=== PATIENT | male | born 1980 | race Caucasian/White ===

== ENCOUNTER → 2020-03-11 15:48 | Outpatient (CLI) | payer OTHER, SELFPAY ==
--- NOTE | ~2020-03-11 | XR_ITS ---
EXAMINATION: XR hand RT min 3V DATE: 03/11/2020 16:19 INDICATION: Right hand pain and swelling post fourth digit hyperextension injury 2-3 weeks prior. TECHNIQUE: Posteroanterior, oblique and lateral views of the right hand were obtained. COMPARISON: None. FINDINGS: Dorsal subluxation near dislocation of the right fourth dorsal interphalangeal joint. Small fracture along the palmar rim of the middle phalanx which is displaced distally with approximately 1.5 mm step -off at the articular surface. Soft tissue swelling about the fourth proximal interphalangeal joint. Alignment is otherwise normal in the right hand. No other fractures identified. 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 IMPRESSION: 1. Volar plate avulsion fracture at the fourth proximal phalanx with dorsal subluxation verging on di slocation at the proximal interphalangeal joint. Reviewed, dictated and finalized at location A. 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 Volar plate avulsion fracture at the fourth proximal phalanx with dorsal sub luxation verging on dislocation at the proximal interphalangeal joint.
== END ==
PROVIDERS: Visit Provider Family Medicine
DX: S62.614A Displaced fracture of proximal phalanx of right ring finger, initial encounter for closed fracture (principal)
CPT/HCPCS: 73130

== ENCOUNTER → 2020-03-16 17:05 | Outpatient (CLI) | payer OTHER, SELFPAY ==
--- NOTE | ~2020-03-16 | XR_ITS ---
EXAMINATION: XR finger 4th RT min 2V INDICATION: Right fourth middle phalanx fracture TECHNIQUE: Four views of the right fourth finger are obtained. COMPARISON: 03/11/2020 FINDINGS: Again seen is a volar plate avulsion fracture of the fourth middle phalanx. The middle phal anx demonstrates progressively worsened dorsal subluxation relative to the proximal interphalangeal j oint. Soft tissue swelling of the fourth finger persists but has improved. There is a dorsal splint i n place. The remaining osseous structures are unremarkable. IMPRESSION: 1. Volar plate avulsion fracture at the fourth middle phalanx with interval worsening of dorsal sublu xation of the middle phalanx relative to the proximal phalanx at the proximal interphalangeal joint. 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 Volar plate avulsion fracture at the fourth middle phalanx with interval wor sening of dorsal subluxation of the middle phalanx relative to the proximal pha lanx at the proximal interphalangeal joint.
== END ==
PROVIDERS: Visit Provider Plastic Surgery
DX: S62.624A Displaced fracture of middle phalanx of right ring finger, initial encounter for closed fracture (principal); X58.XXXA Exposure to other specified factors, initial encounter
CPT/HCPCS: 73140

== ENCOUNTER 2020-03-28 01:14 | Outpatient (CLI) | payer OTHER, SELFPAY ==
[2020-03-28 18:59] LABS: SARS-CoV-2 RNA PCR Negative
== END 2020-03-28 01:15 | disposition home or self-care (01) ==
LOC: ANHCOVIDDT 01:15
PROVIDERS: PCP Family Medicine; Visit Provider Plastic Surgery
DX: Z01.818 Encounter for other preprocedural examination (principal); Z20.828 Contact with and (suspected) exposure to other viral communicable diseases
CPT/HCPCS: 87635; C9803; U0003

== ENCOUNTER 2020-03-31 01:53 | Day surgery (SDC) | payer OTHER, SELFPAY ==
[2020-03-30 10:13] VITALS: BMI 29.9
--- NOTE | 2020-03-30 12:14 | P.PNAN_ITS ---
Anes - Initial Pre Proc Eval Procedure: Operation Date: 03/31/20 08:30 Proposed Procedures p Volar Plate Advancement Arthroplasty Right Ring Proximal Interphalangeal Joint - Miguelangel Echols MD Date/Time: 03/30/20 12:14 Surgeon: Miguelangel Echols MD Pre Op Diagnosis: displaced fx phalanx right ring finger Patient Data Age: 39 Gender: M Height: 1.91 m Weight: 108.86 kg Allergies Allergy/AdvReac Type Severity Reaction Status Date / Time No Known Allergies Allergy Unverified 04/04/19 10:35 Home Medications Medication Instructions Recorded Confirmed Type adalimumab [Humira(CF) Pen] 40 mg SUBCUT WEEKLY 03/30/20 03/30/20 History Patient hx anesthesia problems: none Family hx anesthesia problems: none PMFSH Past Medical History Medical History (Updated 03/30/20 @ 12:23 by Dada Nix MD) Obesity Psoriasis Psoriatic arthritis Family History Family History Grandparent Family history of cardiovascular disease Cerebrovascular accident Other Family history of throat cancer Social History Social History Smoking packs per day: 1 Smoking cigarettes per day: 20.0 Years smoked: 10 Smoking pack-years: 10.00 Smoking status: Former smoker Tobacco type: cigarettes Second hand tobacco smoke exposure: No Smoking end date: 04/10/17 Alcohol intake: current Drinks per week: 5 Substance use: never Substance use type: does not use Living arrangements: with family Spiritual care concerns: No Anes - Eval Final PreProcedure Day of Procedure 03/30/20 12:14 Patient weight: obese Heart: regular rate and rhythm Lungs: clear to auscultation and normal air movement Airway: Mallampati scale class II Neurological: alert and oriented Last oral intake: >/= 8 hours ASA classification: II Emergent: no Anesthetic plan: proceed Anesthesia type and monitoring: general LMA Informed Consent: The patient's anesthetic plan and its attendant risks and benefits were discussed with the patient/family/POA. Questions were solicited and answers provided to the satisfaction of the patient/family/POA.
[2020-03-31] VITALS (8 sets, daily range): BP systolic 136–159; BP diastolic 78–93; PULSE 62–84; RESP 12–20; TEMP 36.1–36.3; O2SAT 95–100
--- NOTE | ~2020-03-31 | XR_ITS ---
EXAMINATION: XR surgery orthopedic EXAM DATE: 03/31/2020 10:25 INDICATION: RT Ring Finger Arthroplasty . TECHNIQUE: Fluoroscopy used during XR surgery orthopedic performed by Dr. Miguelangel Echols MD. The DAP for this procedure was 20 cGycm2. Comparison is made to prior examination from 03/16/2020. FINDINGS: There is a metallic wire fixing the right 4th proximal interphalangeal joint in expected p osition, reduction in the previously seen posterior dislocation. Difficult to identify the middle pha langeal volar plate avulsion seen on that exam. Correlate with procedure note. IMPRESSION: Fluoroscopy used during XR surgery orthopedic. Reviewed, dictated and finalized at location B. 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
[2020-03-31] MEDS: LACTATED RINGERS 1,000 ML 30 ML IV CONT ×2 (06:26→10:36)
--- NOTE | 2020-03-31 07:13 | WPDHPUPDATE1 ---
History and Physical Update Update Date/Time: 03/31/20 07:13 History and Physical has been reviewed, including an updated exam of the patient. There are NO changes in the patient's condition. Risks, benefits, and alternatives have been discussed and questions answered. Patient agrees to proceed with procedure.
[2020-03-31] MEDS: ceFAZolin 2 GM/D5W 50 ML 2 GM/50 ML BAG IVPB (07:23)
[2020-03-31] MEDS: LIDO 1%/EPINEPHRINE 1:100,000 20 ML VIAL 8 ML INFILTRATE (07:50)
--- NOTE | 2020-03-31 10:59 | PM.OP ---
Procedure Note - Brief Procedure Note - Brief Date of procedure: 03/31/20 Pre-op diagnosis: displaced fx phalanx right ring finger Post-op diagnosis: same Procedure performed: Volar plate advancement arthroplasty right ring finger. Anesthesia: GLMA Surgeon: Miguelangel Echols MD Factory Superintendent: ANTONI Estimated blood loss (mL): 10 Drains: No Packing: No Pathology: none sent Complications: No immediate complications Condition: stable Disposition: PACU
--- NOTE | 2020-04-01 18:20 | P.OP_ITS ---
Procedure Note - Detailed Date of procedure: 03/31/20 Pre-op diagnosis: displaced fx phalanx right ring finger Post-op diagnosis: same Procedure performed: Volar plate arthroplasty of the proximal interphalangeal joint of the right ring finger Description of procedure: The right ring finger was marked in the holding flowers. The patient was taken to the operating room and placed supine on the operating table. A time-out was held and confirmed. He was given general endotracheal anesthesia. The right upper extremity was prepped and draped in usual fashion. The right ring finger was infiltrated with 1% lidocaine with epinephrine as an i ntrathecal block. Markings were made for the palmar skin flap the tourniquet was inflated to 250 mmHg. The skin flap was elevated leaving the neurovascular bundle on that side in situ. The flap was based radially. The flexor tendon sheath was exposed. The interval between the 2nd and 4th annular pulleys was incised and elevated radially as a flap to be repaired later. The flexor tendons were mobilized to either side as needed. The volar plate was incised at the insertion elevating the fracture fragments proximally with the volar plate. The attached fragments were excised off the volar plate. The fracture site was carefully examined. A trough was cleared from 1 side to the other removing small fracture fragments. An appropriate length of volar plate was determined. The position of the middle phalanx to receive the advancing volar plate was determined. Two double-armed 3-0 Ethibond sutures were inserted in Vivian fashion on either lateral aspect of the volar plate. The distal volar plate was elevated carefully away from the head of the proximal phalanx approximately a cm. A Srini needle was drilled through the base of the middle phalanx starting adjacent to the articular surface and exiting in the area of the triangular ligament. The 2 suture ends from each side were passed through the bone on the Srini needle after removing the switched on needles. With the finger flexed approximately 35? the volar plate was advanced and the suture ends tied over the dorsal cortex of the middle phalanx. In extension there was complete congruity without any subluxation. It appeared that in passive flexion the congruity was lost. A suture was placed on either side of the volar plate to reattached the collateral ligaments. With careful reduction of subluxation of the middle phalanx, the joint was stabilized with a transfixing 0.045 inch c-wire. The tendon sheath flap was repaired with 4-0 Vicryl sutures. The C-wire was cut and a Jurgan ball applied to the tip. No repair of the triangular ligament was done. The central slip remained in situ. The skin was closed with a running 5 0 nylon suture on the dorsum and palmar aspect. A soft padded dressing was applied. 0.5% Marcaine plain was infiltrated in the base of the digit. The patient had been given IV Ancef 2 g at the start of the case. He was discharged home with instructions in wound care and follow-up and a prescription for Percocet 5/325 #14. Surgeon: Miguelangle Echols MD
== END 2020-03-31 12:28 | disposition home or self-care (01) ==
PROVIDERS: PCP Family Medicine; Visit Provider Plastic Surgery
PROC: (CPT 25447; principal; 2020-03-31 07:30)
DX: S62.615A Displaced fracture of proximal phalanx of left ring finger, initial encounter for closed fracture (principal); X50.0XXA Overexertion from strenuous movement or load, initial encounter; L40.9 Psoriasis, unspecified; L40.50 Arthropathic psoriasis, unspecified; E66.9 Obesity, unspecified; Z68.30 Body mass index [BMI] 30.0-30.9, adult
CPT/HCPCS: 26735; 87635; A9270; C1713; C9803; J0131; J0690; J1100; J1170; J1885; J2250; J2405; J2704; J3010; J7120; U0003

== ENCOUNTER → 2020-05-04 16:52 | Outpatient (CLI) | payer OTHER, SELFPAY ==
--- NOTE | ~2020-05-04 | XR_ITS ---
XR finger 4th RT min 2V DATE: 05/04/2020 17:08 INDICATION: Status post polar plate arthroplasty TECHNIQUE: 5 views COMPARISON: 03/16/2020, 03/11/2020 right fourth digit right hand, respectively FINDINGS: There is very prominent soft tissue swelling of the fourth digit centered at the proximal i nterphalangeal joint. There is at least 50% dorsal subluxation at the proximal interphalangeal joint. Previously noted ante rior cortical avulsion fracture fragment is not definitely visualized on the current examination. Is osteoarthritic change at the distal interphalangeal joint. IMPRESSION: Very prominent soft tissue swelling centered at the proximal interphalangeal joint If there is concern for osteomyelitis, consider 3 phase radionuclide bone scan. 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 At least 50% dorsal subluxation at the proximal interphalangeal joint
== END ==
PROVIDERS: Visit Provider Plastic Surgery
DX: S62.624D Displaced fracture of middle phalanx of right ring finger, subsequent encounter for fracture with routine healing (principal); M79.89 Other specified soft tissue disorders
CPT/HCPCS: 73140

== ENCOUNTER → 2021-12-07 15:55 | Outpatient (CLI) | payer OTHER, SELFPAY ==
--- NOTE | ~2021-12-07 | XR_ITS ---
XR ankle LT min 3V DATE: 12/07/2021 16:04 INDICATION: Left ankle pain TECHNIQUE: 4 views COMPARISON: None FINDINGS: Prominent plantar calcaneal enthesopathy. No fracture or dislocation of the ankle or disruption of the ankle mortise. No periosteal reaction or bone destruction. IMPRESSION: Plantar calcaneal enthesopathy No significant abnormality of the ankle Reviewed, dictated and finalized at location B.
== END ==
PROVIDERS: PCP Family Medicine; Visit Provider Family Medicine
DX: M25.572 Pain in left ankle and joints of left foot (principal); M77.32 Calcaneal spur, left foot
CPT/HCPCS: 73610

== ENCOUNTER 2023-07-28 09:46 | Outpatient (CLI) | payer OTHER, SELFPAY ==
--- NOTE | 2023-07-28 09:51 | EST_ITS ---
Patient Info Name: Jarocho Michel Age: 42 years : 1980 Gender: Male Ht: 75 in Wt: 235 lbs BSA: 2.39 m2 HR: 49 bpm BP: 130 / 76 mmHg Exam Date: 07/28/2023 10:01 AM Exam Location: [facility] Patient Status: Outpatient Admit Date: 07/28/2023 Staff Ordering Physician: Manolo Fox DO Attending Provider: Manolo Fox DO Exercise Technologist: Johana Tanner [facility] Exercise Physician: Porfirio Swanson DO Exam Type: CA stress test treadmill Study Info A treadmill exercise stress test was performed. Summary 1. 1. Negative Mikey exercise stress test for ischemic ST changes by ECG criteria. 2. 2. Good functional capacity, achieving 12 METs of workload. 3. 3. Hypertensive response to exercise. 4. 4. Appropriate HR response to exercise. 5. 5. Appropriate HR recovery at 1 minute post exercise. 6. 6. No imaging with stress testing. 7. 7. Patient informed of the above results. Protocol: Mikey Stress ECG Details Stage: REST Duration (min): 1 min : 5 sec Speed (mph): 0.0 Grade (%): 0 HR (bpm): 49 SBP (mmHg): 130 DBP (mmHg): 76 METS: --- Stage: REST Duration (min): 3 min : 56 sec Speed (mph): 0.0 Grade (%): 0 HR (bpm): 62 SBP (mmHg): 130 DBP (mmHg): 76 METS: --- Stage: STAGE 1 Duration (min): 1 min : 0 sec Speed (mph): 1.7 Grade (%): 10 HR (bpm): 87 SBP (mmHg): 130 DBP (mmHg): 76 METS: --- Stage: STAGE 1 Duration (min): 2 min : 0 sec Speed (mph): 1.7 Grade (%): 10 HR (bpm): 95 SBP (mmHg): 130 DBP (mmHg): 76 METS: --- Stage: STAGE 1 Duration (min): 3 min : 0 sec Speed (mph): 1.7 Grade (%): 10 HR (bpm): 97 SBP (mmHg): 167 DBP (mmHg): 103 METS: --- Stage: STAGE 2 Duration (min): 1 min : 0 sec Speed (mph): 2.5 Grade (%): 12 HR (bpm): 110 SBP (mmHg): 167 DBP (mmHg): 103 METS: --- Stage: STAGE 2 Duration (min): 2 min : 0 sec Speed (mph): 2.5 Grade (%): 12 HR (bpm): 113 SBP (mmHg): 174 DBP (mmHg): 83 METS: --- Stage: STAGE 2 Duration (min): 3 min : 0 sec Speed (mph): 2.5 Grade (%): 12 HR (bpm): 110 SBP (mmHg): 174 DBP (mmHg): 83 METS: --- Stage: STAGE 3 Duration (min): 1 min : 0 sec Speed (mph): 3.4 Grade (%): 14 HR (bpm): 117 SBP (mmHg): 166 DBP (mmHg): 108 METS: --- Stage: STAGE 3 Duration (min): 2 min : 0 sec Speed (mph): 3.4 Grade (%): 14 HR (bpm): 122 SBP (mmHg): 166 DBP (mmHg): 108 METS: --- Stage: STAGE 3 Duration (min): 3 min : 0 sec Speed (mph): 3.4 Grade (%): 14 HR (bpm): 122 SBP (mmHg): 182 DBP (mmHg): 107 METS: --- Stage: STAGE 4 Duration (min): 1 min : 0 sec Speed (mph): 4.2 Grade (%): 16 HR (bpm): 136 SBP (mmHg): 182 DBP (mmHg): 107 METS: --- Stage: STAGE 4 Duration (min): 2 min : 0 sec Speed (mph): 4.2 Grade (%): 16 HR (bpm): 142 SBP (mmHg): 188 DBP (mmHg): 105 METS: --- Stage: STAGE 4 Duration (min): 3 min : 0 sec Speed (mph): 4.2 Grade (%): 16 HR (bpm): 150 SBP (mmHg): 188 DBP (mmHg): 105 METS: --- Stage: STAGE 5 Duration (min): 0 min : 16 sec Speed (mph): 5.0 Grade (%): 18 HR (bpm): 154 SBP (mmHg): 188 DBP (mmHg): 105 METS: --- Stage: RECOVERY Duration (min): 0 min : 43 sec Speed (mph): 0.0 Grade (%): 0 HR (bpm): 134 SBP (mmHg): 232 DBP (mmHg): 62 METS: --- Stage: RECOVERY Duration (min): 1 min : 43 sec Speed (mph): 0.0 Grade (%): 0 HR (bpm): 105 SBP (mmHg): 232 DBP (mmHg): 62 METS: --- Stage: RECOVERY Duration (min): 2 min : 43 sec Speed (mph): 0.0 Grade (%): 0 HR (bpm): 89 SBP (mmHg): 232 DBP (mmHg): 62 METS: --- Stage: RECOVERY Duration (min): 3 min : 10 sec Speed (mph): 0.0 Grade (%): 0 HR (bpm): 88 SBP (mmHg): 155 DBP (mmHg): 86 METS: --- Rest HR: 62 bpm Peak HR: 156 bpm Rest Sys BP: 130 mmHg Peak Sys BP: 232 mmHg Max Pred HR: 180 bpm % Max Pred HR: 87 % Target HR: 153 bpm Max RPP: 36,192 bpm*mmHg Barton Score: -2 BP Response: Patient exhibited a hypertensive response with stress Termination Reason: Reached target heart rate or workload Cardiac Symptoms: Shortness of breath Max ST Seg Deviation: 2.90 mm Total Time: 12 min : 16 sec Rest Quinones BP: 76 mmHg Peak Quinones BP: 62 mmHg Angina Score: None Total METS: 12.4 Resting ECG Sinus rhythm, RAD, IRBBB. Stress ECG No ST changes. Arrhythmias None. Report Signatures
== END 2023-07-28 09:47 | disposition home or self-care (01) ==
PROVIDERS: PCP Family Medicine; Visit Provider Family Medicine
DX: R07.89 Other chest pain (principal)
CPT/HCPCS: 93017